=== PATIENT | male | born 1965 | race Caucasian/White ===

== ENCOUNTER 2016-10-26 19:54 | Emergency (ER) | payer OTHER ==
[~2016-10-26] VITALS: Ht 182.9 cm; Wt 72.6 kg
[2016-10-26 22:10] VITALS: BP 131/92
== END 2016-10-27 00:46 | disposition home or self-care (01) ==
LOC: EDBD 19:54 → ER 20:12
DX: R56.9 Unspecified convulsions (principal); Z76.0 Encounter for issue of repeat prescription